=== PATIENT | male | born 1960 | race Caucasian/White ===

== ENCOUNTER 2024-10-08 10:53 | Emergency (ER) | payer MEDICAID ==
[~2024-10-08] VITALS: Ht 175.3 cm; Wt 66.1 kg
[2024-10-08 10:58] VITALS: BP 162/74; PULSE 66; RESP 16; TEMP 97.9; O2SAT 99
--- NOTE | 2024-10-08 13:43 | Physician Documentation ---
History of Present Illness ~ Chief Complaint: Multiple Medical Complaints Stated Complaint: MOBILITY ISSUES Time Seen by MD: 13:08 [facility] 64-year-old male presents to the ED with a complaint of right knee pain right hip pain and lower back pain for the last two months. He says that he fell at work and the job he was doing did not have worker's comp insurance therefore he has been unable to pursue treatment. Reports right knee numbness denies any saddle anesthesia fevers or incontinence Day of Onset: Oct 08, 2024 Medication Reconciliation Allergies: Coded Allergies: naproxen (Verified Allergy, Unknown, RASH, 10/08/24) Uncoded Allergies: HAY FEVER (Allergy, Unknown, 10/08/24) Review of Systems All Other Systems at this time: Reviewed and Negative ROS As stated above in the HPI, otherwise all systems are reviewed and negative. Physical Exam Physical Exam Vital Signs: Temperature: 97.9, Heart Rate: 66, Respiratory Rate: 16, BP: 162/74, Pulse Oximetry: 99, Weight: 66.100 Oxygen Flow Rate: 0 Physical Exam General: Alert, no apparent distress. HEENT: PERRL, EOMI, no injection, moist mucous membranes. Neck: Full range of motion. Respiratory: Lungs clear, no respiratory distress. Chest: No accessory muscle use. Cardiovascular: Regular rate and rhythm, no murmurs. Gastrointestinal: Soft, nontender, nondistended. Bowels sounds present. Extremities: Normal range of motion, no deformity. Neurologic: Oriented x4. Psychiatric: Normal mood and affect. Skin: Normal color, warm and dry. No edema, no ecchymosis. Progress Results/Orders Results/Orders Orders - GOPAL MENDOZA [employer] Lumbar Spine Limited (10/08/24 13:48) Hip Unilateral 2 Views (10/08/24 13:48) Knee Limited (Ap/Lat) (10/08/24 13:48) Completed Orders - GOPAL MENDOZA [employer] Lumbar Spine Limited (10/08/24 13:48) Hip Unilateral 2 Views (10/08/24 13:48) Knee Limited (Ap/Lat) (10/08/24 13:48) Vital Signs 10/08/24 10/08/24 10:58 13:54 Temp 97.9 Pulse 66 Resp 16 B/P (MAP) 162/74 Pulse Ox 99 O2 Flow Rate 0 Medical Decision Making Findings Patient's x-rays show a multitude of various modalities of degeneration in the imaged joints. Lumbar region shows spondylolysis with fusion of the L4-L5. This is likely contributing to the numbness in his right knee in addition his knee has notable degeneration. Discussed these findings with the patient. 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 I continued to not suspect any acute findings including any red flag symptoms. He thinks he had largely benefit from pain management and physical therapy to improve mobility and strength. I repeatedly encouraged him to go to primary care in order to obtain the appropriate modalities of treatment offered pain management patient declined Differential Dx:Considerations: Include: AAA, Aortic dissection, Appendicitis, Bowel obstruction, Cholelithiasis, Cholangitis, DJD, Fracture, Hepatitis, HNP, Musculoskeletal pain, Pancreatitis, Pyelonephritis, Renal infarction, Strain, Urinary obstruction, Urolithiasis, Urinary tract infection, Other Departure Disposition: HOME / SELF CARE / HOMELESS Impression: Primary Impression: Lumbar back pain Additional Impressions: Knee pain, right Hip pain, right Condition: Stable Additional Instructions: I instructed you it is important that you establish with a primary care in order to get the appropriate modalities of treatment for your symptoms. This may include referral to physical therapy, and a pain management clinic Referrals: NO PRIMARY CARE PROVIDER (PCP) Signature Scribe Signature: b Attestation: Scribed for Gopal Mendoza Np by Gopal Talley NP . 10/08/24 14:54 GOPAL MENDOZA NP Oct 08, 2024 13:43
--- NOTE | 2024-10-08 14:29 | RADIOLOGY REPORT ---
CLINICAL INDICATION: fall RIGHT KNEE TECHNIQUE: DI KNEE LIMITED (AP/LAT) Comparison: None FINDINGS/IMPRESSION: : There is no evidence of acute fracture or dislocation. Mild lateral subluxation of the proximal tibia relative to the distal femur, likely degenerative. Note is made of a fabella. 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 Superior patellar enthesophyte. No joint effusion. Mild prepatellar soft tissue swelling.
--- NOTE | 2024-10-08 14:30 | RADIOLOGY REPORT ---
CLINICAL INDICATION: fall RIGHT HIP TECHNIQUE: DI HIP UNILATERAL 2 VIEWS Comparison: None FINDINGS/IMPRESSION: : There is no evidence of acute fracture or dislocation. Mild osteoarthritis of the bilateral hips with mild joint space narrowing. Overlying soft tissues are intact. Phlebolith projects over the right pelvis.
--- NOTE | 2024-10-08 14:39 | RADIOLOGY REPORT ---
INDICATION: fall COMPARISON: None TECHNIQUE: 2 views of the lumbar spine were obtained. FINDINGS: 5 [id number] lumbar type vertebral bodies. Grade 1 retrolisthesis at L4-L5. The pedicles are int act. Sacroiliac joints are maintained. Straightening of the lumbar lordosis. Vertebral body heights a re maintained. No definite acute fracture. There is moderate multilevel degenerative disc disease of the lumbar spine. Osseous fusion of the L3-L4 intervertebral disc space. Moderate multilevel disc sp sanjeev narrowing in the lumbar spine multilevel facet hypertrophy and multilevel anterior osteophyte for mation of the lumbar spine. Calcified plaque projects over of the abdominal aorta. IMPRESSION: No definite acute fracture or traumatic malalignment. Moderate multilevel lumbar spondylosis. Osseous Fusion of the intervertebral disc space at L3-L4.
== END 2024-10-08 15:03 | disposition home or self-care (01) ==
LOC: ER 10:54
DX: M54.50 Low back pain, unspecified (principal); M25.551 Pain in right hip; M25.561 Pain in right knee; R20.0 Anesthesia of skin; Z88.6 Allergy status to analgesic agent
CPT/HCPCS: 72100; 73502; 73560; 99284